=== PATIENT | female | born 1995 | race Caucasian/White ===

== ENCOUNTER 2020-08-30 08:10 | Inpatient (IN) | payer BC ==
[~2020-08-30 08:10] MED LIST: Lidocaine 1.5% with EPINEPHrine 1:200,000 5 ML Amp ONE
[2020-08-30] MEDS ORDERED: Ondansetron 4 MG/2 ML SDV IVPUSH PRN (08:38)
[2020-08-30] MEDS ORDERED: Nalbuphine 10 MG/1 ML Vial IVPUSH PRN (08:38)
[2020-08-30] MEDS ORDERED: Ampicillin 2 GM in Sodium Chloride 0.9% 100 ML IV ONE (08:38)
[2020-08-30] MEDS ORDERED: Sodium Chloride 0.9% 10 ML Syringe FLUSH PRN (08:38)
[2020-08-30] MEDS ORDERED: Oxytocin/Lactated Ringers 10 UNIT/1,000 ML BAG IV SCH ×2 (08:45→16:15)
[2020-08-30] MEDS: Lactated Ringers 1,000 ML IV SCH ×3 (09:30→14:56)
--- NOTE | 2020-08-30 10:09 | PCM.LDHP ---
L&D History of Present Illness - General Date of Service: 08/30/20 Admit Problem/Dx: Patient Status Order with Admit Dx/Problem 08/30/20 08:22 Patient Status [ADT] Routine 08/30/20 08:38 Patient Status [ADT] Routine Admission Diagnosis/Problem Admission Diagnosis/Problem Source of Information: Patient History Limitations: Reports: No Limitations - History of Present Illness Introduction:: Patient is a 24 y/o at 38 2/7 wks who presented this AM with SROM. Doing well. 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: : 1 Para: 0 LMP (Approximate): - Past Surgical History HEENT Surgical History: Reports: Oral Surgery (wisdom tooth extraction) Female Surgical History: Reports: Breast Reduction Musculoskeletal Surgical History: Reports: Other (See Below) (right foot procedure) Social & Family History - Tobacco Use Tobacco Use Status *Q: Never Tobacco User - Alcohol Use Alcohol Use History: No - Recreational Drug Use Recreational Drug Use: No H&P Review of Systems - Review of Systems: Review Of Systems: See Below General: Reports: No Symptoms Pulmonary: Reports: No Symptoms Cardiovascular: Reports: No Symptoms Gastrointestinal: Reports: No Symptoms Genitourinary: Reports: No Symptoms Musculoskeletal: Reports: No Symptoms Psychiatric: Reports: No Symptoms Neurological: Reports: No Symptoms L&D Exam - Exam Exam: See Below - OB Specific Contraction Intensity: Moderate Movement: Active Heart Tones: Present Heart Tones per Min: 140 Heart Rate (FHR) Variability: Moderate (6-25 bmp) Presentation: Vertex - Delvalle Score Delvalle Score Cervix Position: Anterior Delvalle Score Consistency: Soft Delvalle Score Effacement: >80% Delvalle Score Dilation: > 5 cm Delvalle Score 's Station: -1 ,0 Delvalle Score Total: 12 - Exam General: Alert, Oriented, Cooperative Lungs: Clear to Auscultation, Normal Respiratory Effort Cardiovascular: Regular Rate, Regular Rhythm GI/Abdominal Exam: Soft, Non-Tender Genitourinary: Normal external exam Extremities: Normal Inspection Skin: Warm, Dry, Intact - Patient Data Lab Results Last 24 hrs: Laboratory Results - last 24 hr 08/30/20 08/30/20 Range/Units 08:38 08:39 WBC 11.67 H (3.98-10.04) K/mm3 RBC 4.27 (3.98-5.22) M/mm3 Hgb 12.5 D (11.2-15.7) gm/dl Hct 37.9 (34.1-44.9) % MCV 88.8 (79.4-94.8) fl MCH 29.3 (25.6-32.2) pg MCHC 33.0 (32.2-35.5) g/dl RDW Std Deviation 47.2 H (36.4-46.3) fL Plt Count 208 (182-369) K/mm3 MPV 9.8 (9.4-12.3) fl SARS-CoV-2 RNA (FREDY) Negative (NEGATIVE) Result Diagrams: 08/30/20 08:38 - Problem List (1) 38 weeks gestation of SNOMED Code(s): 25420488 ICD Code: Z3A.38 - 38 WEEKS GESTATION OF Status: Acute Current Visit: Yes (2) GBS (group B Streptococcus carrier), +RV culture, currently SNOMED Code(s): 2866039146778, 282361007, 1166929147689 ICD Code: O99.820 - STREPTOCOCCUS B CARRIER STATE COMPLICATING Status: Acute Current Visit: Yes Problem List Initiated/Reviewed/Updated: Yes Orders Last 24hrs: Active Orders 24 hr Category Date Time Status Patient Status [ADT] Routine ADT 08/30/20 08:22 Active Patient Status [ADT] Routine ADT 08/30/20 08:38 Active Activity as Tolerated [RC] PFP Care 08/30/20 08:38 Active Communication Order [RC] ASDIRECTED Care 08/30/20 08:38 Active Heart Tones [RC] ASDIRECTED Care 08/30/20 08:38 Active Non Stress Test [RC] PER UNIT ROUTINE Care 08/30/20 08:22 Active Notify Provider [RC] PFP Care 08/30/20 08:38 Active Notify Provider [RC] PRN Care 08/30/20 08:38 Active Peripheral IV Care [RC] . DIRECTED Care 08/30/20 08:38 Active Vaginal Exam [RC] PRN Care 08/30/20 08:22 Active Vital Signs [RC] PER UNIT ROUTINE Care 08/30/20 08:22 Active Regular Diet [DIET] Diet 08/30/20 Breakfast Active Regular Diet [DIET] Diet 08/30/20 Breakfast Active AMNISURE RUPTURE MEMBRAN [BF] Stat Lab 08/30/20 08:22 Ordered PATIENT RETYPE [BBK] Routine Lab 08/30/20 09:53 Ordered RAPID PLASMA REAGIN,RPR [CHEM] Routine Lab 08/30/20 08:38 Ordered TYPE AND SCREEN [BBK] Stat Lab 08/30/20 09:00 Results Ampicillin 1 gm Med 08/30/20 12:45 Active Sodium Chloride 0.9% [Normal Saline] 100 ml IV Q4H Lactated Ringers [Ringers, Lactated] 1,000 ml Med 08/30/20 08:45 Active IV ASDIRECTED Nalbuphine [Nubain] Med 08/30/20 08:38 Active 10 mg IVPUSH Q2H PRN Ondansetron [Zofran] Med 08/30/20 08:38 Active 4 mg IVPUSH Q4H PRN Oxytocin/Lactated Ringers [Pitocin in LR 10 Units/1,000 Med 08/30/20 08:45 Active ML] 10 unit in 1,000 ml IV .CONTINUOUS Sodium Chloride 0.9% [Saline Flush] Med 08/30/20 08:38 Active 10 ml FLUSH ASDIRECTED PRN Electronic Heart Tones Ext w TOCO [WOMSER] Oth 08/30/20 08:38 Ordered Routine Electronic Heart Tones Internal [WOMSER] Per Unit Oth 08/30/20 08:38 Ordered Routine Peripheral IV Insertion Adult [OM.PC] Routine Oth 08/30/20 08:38 Ordered Resuscitation Status Routine Resus Stat 08/30/20 08:22 Ordered Medication Orders Lactated Ringer's (Ringers, Lactated) 1,000 mls @ 100 mls/hr IV ASDIRECTED ARIANA Last Admin: 08/30/20 09:30 Dose: 100 mls/hr Documented by: MARIKA Ampicillin Sodium 1 gm/ Sodium (Chloride) 100 mls @ 200 mls/hr IV Q4H ARIANA Oxytocin/Lactated Ringer's (Pitocin In Lr 10 Units/1,000 Ml) 10 unit in 1,000 mls @ 500 mls/hr IV .CONTINUOUS ARIANA Nalbuphine HCl (Nalbuphine 10 Mg/1 Ml Vial) 10 mg IVPUSH Q2H PRN PRN Reason: Pain Ondansetron HCl (Ondansetron 4 Mg/2 Ml Sdv) 4 mg IVPUSH Q4H PRN PRN Reason: Nausea/Vomiting Sodium Chloride (Sodium Chloride 0.9% 10 Ml Syringe) 10 ml FLUSH ASDIRECTED PRN PRN Reason: Keep Vein Open Assessment/Plan Comment:: * Labs * GBS positive, Ampicillin to be started * Pain management per patient preference * Anticipate
[2020-08-30] MEDS: Ampicillin 1 GM in Sodium Chloride 0.9% 100 ML IV SCH ×3 (13:05→21:51)
[2020-08-30] MEDS ORDERED: fentaNYL 100 MCG/2 ML SDV EPIDUR PRN (13:07)
[2020-08-30] MEDS ORDERED: ePHEDrine 50 MG/ML SDV IVPUSH PRN (13:07)
[2020-08-30] MEDS ORDERED: diphenhydrAMINE 50 MG/ML SDV IVPUSH PRN (13:07)
[2020-08-30] MEDS ORDERED: fentaNYL 100 MCG/2 ML SDV ONE (13:18)
[2020-08-30] MEDS: Bupivacaine/fentaNYL/NS 100 ML Bag EPIDUR PRN ×2 (13:22→21:50)
--- NOTE | 2020-08-30 14:02 | PCM.SN.2 ---
- Free Text/Narrative Note: Requested to palce a peripheral IV catheter after 5 unsuccessful attempts by floor RNs. Left hand #20 placed , good blood return and flushed easily. Start 914 End 929
--- NOTE | 2020-08-30 14:03 | PCM.PREANE ---
Preanesthetic Assessment - Procedure Proposed Procedure: Continuous labor epidural - Anesthesia/Transfusion/Family Hx Anesthesia History: Prior Anesthesia Without Reaction Transfusion History: No Prior Transfusion(s) - Review of Systems General: No Symptoms Pulmonary: No Symptoms Cardiovascular: No Symptoms Gastrointestinal: No Symptoms Neurological: No Symptoms Other: Reports: None - Physical Assessment Vital Signs: Last Vital Signs Temp 98.6 F 08/30/20 08:30 Pulse 96 08/30/20 08:30 Resp 16 08/30/20 08:30 BP 136/82 08/30/20 08:30 Pulse Ox 99 08/30/20 08:30 Height: 1.6 m Weight: 98.475 kg ASA Class: 2 Mental Status: Alert & Oriented x3 Airway Class: Mallampati = 3 Dentition: Reports: Normal Dentition Thyro-Mental Finger Breadths: 3 Mouth Opening Finger Breadths: 3 ROM/Head Extension: Full Lungs: Clear to Auscultation, Normal Respiratory Effort Cardiovascular: Regular Rate, Regular Rhythm - Lab Values: Laboratory Last Values WBC 11.67 K/mm3 (3.98-10.04) H 08/30/20 08:38 RBC 4.27 M/mm3 (3.98-5.22) 08/30/20 08:38 Hgb 12.5 gm/dl (11.2-15.7) D 08/30/20 08:38 Hct 37.9 % (34.1-44.9) 08/30/20 08:38 MCV 88.8 fl (79.4-94.8) 08/30/20 08:38 MCH 29.3 pg (25.6-32.2) 08/30/20 08:38 MCHC 33.0 g/dl (32.2-35.5) 08/30/20 08:38 RDW Std Deviation 47.2 fL (36.4-46.3) H 08/30/20 08:38 Plt Count 208 K/mm3 (182-369) 08/30/20 08:38 MPV 9.8 fl (9.4-12.3) 08/30/20 08:38 SARS-CoV-2 RNA (FREDY) Negative (NEGATIVE) 08/30/20 08:39 Blood Type A POSITIVE 08/30/20 09:00 Gel Antibody Screen Negative 08/30/20 09:00 - Allergies Allergies/Adverse Reactions: Allergies Allergy/AdvReac Type Severity Reaction Status Date / Time nitrofurantoin Allergy Rash Verified 08/30/20 08:26 [From Macrobid] sertraline [From Zoloft] Allergy Rash Verified 08/30/20 08:26 hydrocodone AdvReac Other Verified 08/30/20 08:26 - Acknowledgements Anesthesia Type Planned: Epidural Pt an Appropriate Candidate for the Planned Anesthesia: Yes Alternatives and Risks of Anesthesia Discussed w Pt/Guardian: Yes Pt/Guardian Understands and Agrees with Anesthesia Plan: Yes PreAnesthesia Questionnaire Gastrointestinal History: Reports: GERD 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: Endocrine/Metabolic History: Reports: Obesity/BMI 30+ - Past Surgical History HEENT Surgical History: Reports: Oral Surgery (wisdom tooth extraction) Female Surgical History: Reports: Breast Reduction Musculoskeletal Surgical History: Reports: Other (See Below) (right foot procedure) - SUBSTANCE USE Tobacco Use Status *Q: Never Tobacco User Tobacco Use Within Last Twelve Months: No Second Hand Smoke Exposure: No Recreational Drug Use History: No - CURRENT (IN HOUSE) MEDS Current Meds: Current Medications Diphenhydramine HCl (Diphenhydramine 50 Mg/Ml Sdv) 25 mg IVPUSH Q6H PRN PRN Reason: pruritis Ephedrine Sulfate (Ephedrine 50 Mg/Ml Sdv) 5 mg IVPUSH ASDIRECTED PRN PRN Reason: Hypotension Fentanyl (Fentanyl 100 Mcg/2 Ml Sdv) 100 mcg EPIDUR Q3H PRN PRN Reason: Pain Last Admin: 08/30/20 13:22 Dose: 100 mcg Documented by: Fentanyl/Bupivacaine HCl (Bupivacaine/Fentanyl/Ns 100 Ml Bag) 100 ml EPIDUR ASDIRECTED PRN PRN Reason: Pain Last Admin: 08/30/20 13:22 Dose: 100 ml Documented by: Lactated Ringer's (Ringers, Lactated) 1,000 mls @ 100 mls/hr IV ASDIRECTED ARIANA Last Admin: 08/30/20 13:43 Dose: 999 mls/hr Documented by: Ampicillin Sodium 1 gm/ Sodium (Chloride) 100 mls @ 200 mls/hr IV Q4H [facility] Last Admin: 08/30/20 13:05 Dose: 200 mls/hr Documented by: Oxytocin/Lactated Ringer's (Pitocin In Lr 10 Units/1,000 Ml) 10 unit in 1,000 mls @ 500 mls/hr IV .CONTINUOUS ARIANA Nalbuphine HCl (Nalbuphine 10 Mg/1 Ml Vial) 10 mg IVPUSH Q2H PRN PRN Reason: Pain Last Admin: 08/30/20 12:29 Dose: 10 mg Documented by: Ondansetron HCl (Ondansetron 4 Mg/2 Ml Sdv) 4 mg IVPUSH Q4H PRN PRN Reason: Nausea/Vomiting Sodium Chloride (Sodium Chloride 0.9% 10 Ml Syringe) 10 ml FLUSH ASDIRECTED PRN PRN Reason: Keep Vein Open Discontinued Medications Fentanyl (Fentanyl 100 Mcg/2 Ml Sdv) Confirm Administered Dose 100 mcg .ROUTE .STK-MED ONE Stop: 08/30/20 13:19 Last Admin: 08/30/20 13:57 Dose: Not Given Documented by: Ampicillin Sodium 2 gm/ Sodium (Chloride) 100 mls @ 200 mls/hr IV ONETIME ONE Stop: 08/30/20 09:07 Last Admin: 08/30/20 09:30 Dose: 200 mls/hr Documented by:
--- NOTE | 2020-08-30 16:49 | PCM.PNLD ---
Labor Progress Note - VS & Meds Vital Signs: Last Vital Signs Temp 37.0 C 08/30/20 08:30 Pulse 96 08/30/20 08:30 Resp 16 08/30/20 08:30 BP 136/82 08/30/20 08:30 Pulse Ox 99 08/30/20 08:30 Active Medications: Current Medications Diphenhydramine HCl (Diphenhydramine 50 Mg/Ml Sdv) 25 mg IVPUSH Q6H PRN PRN Reason: pruritis Ephedrine Sulfate (Ephedrine 50 Mg/Ml Sdv) 5 mg IVPUSH ASDIRECTED PRN PRN Reason: Hypotension Last Admin: 08/30/20 14:12 Dose: 5 mg Documented by: Fentanyl (Fentanyl 100 Mcg/2 Ml Sdv) 100 mcg EPIDUR Q3H PRN PRN Reason: Pain Last Admin: 08/30/20 13:22 Dose: 100 mcg Documented by: Fentanyl/Bupivacaine HCl (Bupivacaine/Fentanyl/Ns 100 Ml Bag) 100 ml EPIDUR ASDIRECTED PRN PRN Reason: Pain Last Admin: 08/30/20 13:22 Dose: 100 ml Documented by: Lactated Ringer's (Ringers, Lactated) 1,000 mls @ 100 mls/hr IV ASDIRECTED ARIANA Last Admin: 08/30/20 14:56 Dose: 100 mls/hr Documented by: Ampicillin Sodium 1 gm/ Sodium (Chloride) 100 mls @ 200 mls/hr IV Q4H ARIANA Last Admin: 08/30/20 13:05 Dose: 200 mls/hr Documented by: Oxytocin/Lactated Ringer's (Pitocin In Lr 10 Units/1,000 Ml) 10 unit in 1,000 mls @ 500 mls/hr IV .CONTINUOUS ARIANA Oxytocin/Lactated Ringer's (Pitocin In Lr 10 Units/1,000 Ml) 10 unit in 1,000 mls @ 12 mls/hr IV TITRATE ARIANA; Protocol Last Titration: 08/30/20 16:45 Dose: 4 munits/min, 24 mls/hr Documented by: Nalbuphine HCl (Nalbuphine 10 Mg/1 Ml Vial) 10 mg IVPUSH Q2H PRN PRN Reason: Pain Last Admin: 08/30/20 12:29 Dose: 10 mg Documented by: Ondansetron HCl (Ondansetron 4 Mg/2 Ml Sdv) 4 mg IVPUSH Q4H PRN PRN Reason: Nausea/Vomiting Sodium Chloride (Sodium Chloride 0.9% 10 Ml Syringe) 10 ml FLUSH ASDIRECTED PRN PRN Reason: Keep Vein Open Discontinued Medications Fentanyl (Fentanyl 100 Mcg/2 Ml Sdv) Confirm Administered Dose 100 mcg .ROUTE .STK-MED ONE Stop: 08/30/20 13:19 Last Admin: 08/30/20 13:57 Dose: Not Given Documented by: Ampicillin Sodium 2 gm/ Sodium (Chloride) 100 mls @ 200 mls/hr IV ONETIME ONE Stop: 08/30/20 09:07 Last Admin: 08/30/20 09:30 Dose: 200 mls/hr Documented by: - Uterine Contractions Uterine Monitoring Mode: External Angelica Contraction Intensity: Moderate Uterine Resting Tone: Soft - Monitoring Monitor Mode: External Ultrasound Heart Rate (FHR) Baseline: 135 Heart Rate (FHR) Variability: Moderate (6-25 bmp) Accelerations: Present, 15x15 Decelerations: None Strip Review: Category I - Vaginal Exam Dilation (cm): 9-10 Effacement (Percent): 100 Station: 1 - Labor Progress (Free Text) Labor Progress: Doing well. Had be 8 cm over several checks and so pitocin started. Now making change. Comfortable with epidural
--- NOTE | 2020-08-30 22:36 | PCM.DEL ---
L & D Note - General Info Date of Service: 08/30/20 - Delivery Note Labor: Augmented by Oxytocin Delivery Outcome: Livebirth Delivery Method: Spontaneous Vaginal Delivery-Single Infant Delivery Mode: Vacuum Extraction Presentation: Left Occiput Anterior (LUIS ENRIQUE) Nuchal Cord: Present, Reduced Anesthesia Type: Epidural Amniotic Fluid Description: Clear Episiotomy Type: None Laceration: 2nd Degree Suture type: Vicryl Suture size: 2-0 Placenta: Intact, Spontaneous Cord: 3 Vessels Estimated Blood Loss: 200 Resuscitation Needed: Yes [place]: Suctioned, Bulb Syringe, Cathether, Stimulated, Warmed, [place] Used, Warmer Used Score 1 min: 4 Score 5 min: 7 Score 10 min: 8 Delivery Comments (Free Text/Narrative):: The patient was pushing in the dorsal lithotomy position. After about 3 hours of pushing patient became fatigued and discussion was held about assisted vaginal delivery. She did desire to proceed. scalp noted at introitus and visible even without pushing. head in LUIS ENRIQUE presentation. Maternal pushing effort was good and the pelvis was felt to be adequate for an instrument assisted delivery. Given maternal fatigue the decision was made to proceed with vacuum assisted vaginal delivery. The mushroom cup was placed without difficulty at 2123. Assistance done with next 2 contractions and then pop off occurred. Vacuum reapplied at 2128 and over next 2 contractions assistance given with pop of at 2132. Total pressure applied 550 mm Hg. Large, 6 cm diameter, amount of scalp then past opening of introitus. Patient encouraged to continuing pushing on her own. head then delivered from LUIS ENRIQUE presentation. Nuchal cord present and reduced. With gentle downward traction the shoulders and body delivered. Delivery time 2203. placed on maternal abdomen. Cord clamped and cut. Infant taken to warmer for assessment. Cord segment obtained for cord gas. Cord blood obtained. Placenta then allowed time to separate and expelled intact. Inspection of the perineum following delivery with 2nd degree repaired with a 2-0 in the typical fashion. Vacuum Extractor Progress Note - Alternative Labor Strategies Considered Alternative Labor Strategies Considered:: Reports: Yes Strategies Considered:: Reports: Contraction Intensity Adequate Indications Considered:: Reports: Yes Indications:: Reports: Shortening of 2nd Stage for Maternal Benefit Time Out:: Reports: Yes - Patient Prepared Patient Prepared:: Reports: Yes Informed Consent:: Reports: Verbal Risks: Reports: Yes Risks Include:: Reports: Laceration, Shoulder Dystocia, Maternal Injury Anesthesia/Analgesia Adequate:: Reports: Yes - Probability of Success High Probability of Success:: Reports: Yes Weight Estimated:: Reports: AGA Patient Diabetic:: Reports: No Pelvis Adequate:: Reports: Yes Position:: LUIS ENRIQUE Asynclitic:: Reports: No Station:: - Application Time Maximum Application Time & Number of Pop-Offs Predetermined:: Reports: Yes Maximum Pressure Maintained in Green [place] (cm Hg):: 550 Total Application Time (min): *max=20min: 8 Number of Times Cup Disengaged:: 2 Type of Vacuum Used:: Reports: Cup: Mushroom type Comments:: head brought closer to delivery, but patient ultimately able to achieve delivery on her own - Exit Strategy Exit strategy available:: Reports: Yes and resuscitation teams readily available:: Reports: Yes - General Info Date of Service: 08/30/20 - Patient Data Weight - Most Recent: 98.475 kg - Problem List & Annotations (1) 38 weeks gestation of SNOMED Code(s): 39948495 Code(s): Z3A.38 - 38 WEEKS GESTATION OF Status: Acute Current Visit: Yes (2) GBS (group B Streptococcus carrier), +RV culture, currently SNOMED Code(s): 0422246910260, 595729138, [id number] Code(s): O99.820 - STREPTOCOCCUS B CARRIER STATE COMPLICATING Status: Acute Current Visit: Yes (3) Vacuum extraction, delivered, current hospitalization SNOMED Code(s): 225616027 Code(s): O66.5 - ATTEMPTED APPLICATION OF VACUUM EXTRACTOR AND FORCEPS Status: Acute Current Visit: Yes - Problem List Review Problem List Initiated/Reviewed/Updated: Yes - My Orders Last 24 Hours: My Active Orders 08/30/20 Breakfast Regular Diet [DIET] Regular Diet [DIET] 08/30/20 08:22 Patient Status [ADT] Routine Resuscitation Status Routine 08/30/20 08:38 Patient Status [ADT] Routine Activity as Tolerated [RC] PFP Communication Order [RC] ASDIRECTED Notify Provider [RC] PFP Notify Provider [RC] PRN Peripheral IV Care [RC] . DIRECTED Nalbuphine [Nubain] 10 mg IVPUSH Q2H PRN Ondansetron [Zofran] 4 mg IVPUSH Q4H PRN Sodium Chloride 0.9% [Saline Flush] 10 ml FLUSH ASDIRECTED PRN Electronic Heart Tones Ext w TOCO [WOMSER] Routine Electronic Heart Tones Internal [WOMSER] Per Unit Routine Peripheral IV Insertion Adult [OM.PC] Routine 08/30/20 08:45 Lactated Ringers [Ringers, Lactated] 1,000 ml IV ASDIRECTED Oxytocin/Lactated Ringers [Pitocin in LR 10 Units/1,000 ML] 10 unit in 1,000 ml IV .CONTINUOUS 08/30/20 12:45 Ampicillin 1 gm Sodium Chloride 0.9% [Normal Saline] 100 ml IV Q4H 08/30/20 16:15 Oxytocin/Lactated Ringers [Pitocin in LR 10 Units/1,000 ML] 10 unit in 1,000 ml IV TITRATE - Assessment Assessment:: PPD#0 - Plan Plan:: * Routine cares * Breast feeding * Discharge home in 2 days
[2020-08-30] MEDS ORDERED: Docusate Sodium 100 MG Cap PO PRN (23:32)
[2020-08-30] MEDS ORDERED: Benzocaine/Menthol 20%-0.5% Spray 56 GM Canister TOP PRN (23:32)
[2020-08-30] MEDS ORDERED: Acetaminophen 325 MG Tab PO PRN (23:32)
[2020-08-31] MEDS: Witch Hazel Medicated Pads 40/Jar TOP PRN (00:08)
[2020-08-31] MEDS: Ibuprofen 600 MG Tab PO PRN ×4 (00:08→21:24)
[2020-08-31] MEDS ORDERED: Polyethylene Glycol 3350 Powder 17 GM Packet PO PRN (08:14)
--- NOTE | 2020-08-31 08:14 | PCM.PNPP ---
- General Info Date of Service: 08/31/20 Functional Status: Reports: Pain Controlled, Tolerating Diet, Ambulating, Urinating - Review of Systems General: Reports: No Symptoms Pulmonary: Reports: No Symptoms Cardiovascular: Reports: No Symptoms Gastrointestinal: Reports: No Symptoms Genitourinary: Reports: Other (some perineal pain) Musculoskeletal: Reports: No Symptoms - Patient Data Vital Signs - Most Recent: Last Vital Signs Temp 36.4 C 08/31/20 04:06 Pulse 89 08/31/20 04:06 Resp 18 08/31/20 04:06 BP 121/58 L 08/31/20 04:06 Pulse Ox 97 08/31/20 04:06 Weight - Most Recent: 98.475 kg I&O - Last 24 Hours: Intake & Output 08/30/20 08/31/20 08/31/20 22:59 06:59 14:59 Intake Total 2300 2000 Output Total 1300 332 Balance 1000 1668 Lab Results - Last 24 Hours: Laboratory Results - last 24 hr 08/30/20 08/30/20 08/30/20 Range/Units 08:38 08:39 09:00 WBC 11.67 H (3.98-10.04) K/mm3 RBC 4.27 (3.98-5.22) M/mm3 Hgb 12.5 D (11.2-15.7) gm/dl Hct 37.9 (34.1-44.9) % MCV 88.8 (79.4-94.8) fl MCH 29.3 (25.6-32.2) pg MCHC 33.0 (32.2-35.5) g/dl RDW Std Deviation 47.2 H (36.4-46.3) fL Plt Count 208 (182-369) K/mm3 MPV 9.8 (9.4-12.3) fl RPR Non-reactive (NONREACTIVE) SARS-CoV-2 RNA (FREDY) Negative (NEGATIVE) Blood Type Gel Antibody Screen 08/30/20 Range/Units 09:00 WBC (3.98-10.04) K/mm3 RBC (3.98-5.22) M/mm3 Hgb (11.2-15.7) gm/dl Hct (34.1-44.9) % MCV (79.4-94.8) fl MCH (25.6-32.2) pg MCHC (32.2-35.5) g/dl RDW Std Deviation (36.4-46.3) fL Plt Count (182-369) K/mm3 MPV (9.4-12.3) fl RPR (NONREACTIVE) SARS-CoV-2 RNA (FREDY) (NEGATIVE) Blood Type A POSITIVE Gel Antibody Screen Negative Med Orders - Current: Current Medications Acetaminophen (Acetaminophen 325 Mg Tab) 650 mg PO Q4H PRN PRN Reason: mild pain or fever Benzocaine/Menthol (Benzocaine/Menthol 20%-0.5% [place] 56 Gm Canister) 0 gm TOP ASDIRECTED PRN PRN Reason: Perineal Comfort Measure Last Admin: 08/31/20 00:06 Dose: 1 canister Documented by: Docusate Sodium (Docusate Sodium 100 Mg Cap) 100 mg PO BID PRN PRN Reason: Constipation Ibuprofen (Ibuprofen 600 Mg Tab) 600 mg PO Q6H PRN PRN Reason: Mild pain or fever Last Admin: 08/31/20 06:33 Dose: 600 mg Documented by: Keren Nice (Keren Nice Medicated Pads 40/Jar) 1 pad TOP ASDIRECTED PRN PRN Reason: Perineal Comfort Measure Last Admin: 08/31/20 00:08 Dose: 1 tub Documented by: Discontinued Medications Diphenhydramine HCl (Diphenhydramine 50 Mg/Ml Sdv) 25 mg IVPUSH Q6H PRN PRN Reason: pruritis Ephedrine Sulfate (Ephedrine 50 Mg/Ml Sdv) 5 mg IVPUSH ASDIRECTED PRN PRN Reason: Hypotension Last Admin: 08/30/20 14:12 Dose: 5 mg Documented by: Fentanyl (Fentanyl 100 Mcg/2 Ml Sdv) 100 mcg EPIDUR Q3H PRN PRN Reason: Pain Last Admin: 08/30/20 13:22 Dose: 100 mcg Documented by: Fentanyl (Fentanyl 100 Mcg/2 Ml Sdv) Confirm Administered Dose 100 mcg .ROUTE .STK-MED ONE Stop: 08/30/20 13:19 Last Admin: 08/30/20 13:57 Dose: Not Given Documented by: Fentanyl/Bupivacaine HCl (Bupivacaine/Fentanyl/Ns 100 Ml Bag) 100 ml EPIDUR ASDIRECTED PRN PRN Reason: Pain Last Admin: 08/30/20 21:50 Dose: 100 ml Documented by: Lactated Ringer's (Ringers, Lactated) 1,000 mls @ 100 mls/hr IV ASDIRECTED ARIANA Last Admin: 08/30/20 14:56 Dose: 100 mls/hr Documented by: Ampicillin Sodium 2 gm/ Sodium (Chloride) 100 mls @ 200 mls/hr IV ONETIME ONE Stop: 08/30/20 09:07 Last Admin: 08/30/20 09:30 Dose: 200 mls/hr Documented by: Ampicillin Sodium 1 gm/ Sodium (Chloride) 100 mls @ 200 mls/hr IV Q4H ARIANA Last Admin: 08/30/20 21:51 Dose: 200 mls/hr Documented by: Oxytocin/Lactated Ringer's (Pitocin In Lr 10 Units/1,000 Ml) 10 unit in 1,000 mls @ 500 mls/hr IV .CONTINUOUS ARIANA Oxytocin/Lactated Ringer's (Pitocin In Lr 10 Units/1,000 Ml) 10 unit in 1,000 mls @ 12 mls/hr IV TITRATE ARIANA; Protocol Last Titration: 08/30/20 18:02 Dose: 8 munits/min, 48 mls/hr Documented by: Nalbuphine HCl (Nalbuphine 10 Mg/1 Ml Vial) 10 mg IVPUSH Q2H PRN PRN Reason: Pain Last Admin: 08/30/20 12:29 Dose: 10 mg Documented by: Ondansetron HCl (Ondansetron 4 Mg/2 Ml Sdv) 4 mg IVPUSH Q4H PRN PRN Reason: Nausea/Vomiting Sodium Chloride (Sodium Chloride 0.9% 10 Ml Syringe) 10 ml FLUSH ASDIRECTED PRN PRN Reason: Keep Vein Open - Infant Interaction Disposition, : [place] to Nursery Feeding: Breastfed ; Nursed Well Support Person: - Recovery Exam Fundal Tone: Firm Fundal Level: At Umbilicus Fundal Placement: Midline Lochia Amount: Small Lochia Color: Rubra/Red Perineum Description: Other (see below) Other Perinuem Description: 2nd degree with repair Episiotomy/Laceration: Approximated Bladder Status: Voiding - Exam General: Alert, Oriented, Cooperative GI/Abdominal Exam: Soft, Non-Tender - Problem List & Annotations (1) 38 weeks gestation of SNOMED Code(s): 63759998 Code(s): Z3A.38 - 38 WEEKS GESTATION OF Status: Acute Current Visit: Yes (2) GBS (group B Streptococcus carrier), +RV culture, currently SNOMED Code(s): 3039004300447, 277218989, 6627591415478 Code(s): O99.820 - STREPTOCOCCUS B CARRIER STATE COMPLICATING Status: Acute Current Visit: Yes (3) Vacuum extraction, delivered, current hospitalization SNOMED Code(s): 018027887 Code(s): O66.5 - ATTEMPTED APPLICATION OF VACUUM EXTRACTOR AND FORCEPS Status: Acute Current Visit: Yes - Problem List Review Problem List Initiated/Reviewed/Updated: Yes - My Orders Last 24 Hours: My Active Orders 08/30/20 08:22 Resuscitation Status Routine 08/30/20 23:32 Acetaminophen [TylenoL] 650 mg PO Q4H PRN Benzocaine/Menthol [Dermoplast Pain Relief [place]] See Dose Instructions TOP ASDIRECTED PRN Docusate Sodium [Colace] 100 mg PO BID PRN Ibuprofen [Motrin] 600 mg PO Q6H PRN witch Walter [Tucks] 1 pad TOP ASDIRECTED PRN Heat Therapy [OM.PC] PRN 08/30/20 23:32 Activity as Tolerated [RC] PER UNIT ROUTINE Vital Signs [RC] 03,,, Assess Lochia [WOMSER] Per Unit Routine Assess Uterine Involution [WOMSER] Per Unit Routine Breast Pump [WOMSER] Per Unit Routine Ice Therapy [OM.PC] Per Unit Routine Perineal Care [OM.PC] Per Unit Routine Peripheral IV Discontinue [OM.PC] Routine Sitz Bath [OM.PC] Per Unit Routine 08/31/20 23:32 Heat Therapy [OM.PC] PRN - Assessment Assessment:: PPD#1 - Plan Plan:: * Routine cares * Breast feeding * Discharge home tomorrow
--- NOTE | 2020-08-31 08:41 | PCM48HPAN ---
Post Anesthesia Note - EVALUATION WITHIN 48HRS OF ANESTHETIC Vital Signs in Normal Range: Yes Patient Participated in Evaluation: Yes Respiratory Function Stable: Yes Airway Patent: Yes Cardiovascular Function Stable: Yes Hydration Status Stable: Yes Pain Control Satisfactory: Yes Nausea and Vomiting Control Satisfactory: Yes Mental Status Recovered: Yes Vital Signs: Last Vital Signs Temp 97.5 F 08/31/20 04:06 Pulse 89 08/31/20 04:06 Resp 18 08/31/20 04:06 BP 121/58 L 08/31/20 04:06 Pulse Ox 97 08/31/20 04:06 - COMMENTS/OBSERVATIONS Free Text/Narrative:: Patient is on her day 1. Denies any backache or headache. No apparent anesthesia complications noted. Ambulating, no difficulty urinating.
[2020-08-31] MEDS: Docusate Sodium 100 MG Cap PO SCH ×2 (08:55→21:25)
[2020-09-01] MEDS: Ibuprofen 600 MG Tab PO PRN ×2 (04:34→12:16)
--- NOTE | 2020-09-01 05:51 | PCM.DCSUM1 ---
Discharge Summary - Discharge Data Discharge Date: 09/01/20 Discharge Disposition: Home, Self-Care 01 Condition: Good - Referral to Home Health Primary Care Physician: Josephine Starkey MD - Discharge Diagnosis/Problem(s) (1) 38 weeks gestation of SNOMED Code(s): 73225112 ICD Code: Z3A.38 - 38 WEEKS GESTATION OF Status: Acute Current Visit: Yes (2) GBS (group B Streptococcus carrier), +RV culture, currently SNOMED Code(s): 7494694881436, 671302366, 4971463376247 ICD Code: O99.820 - STREPTOCOCCUS B CARRIER STATE COMPLICATING Status: Acute Current Visit: Yes (3) Vacuum extraction, delivered, current hospitalization SNOMED Code(s): 218370930 ICD Code: O66.5 - ATTEMPTED APPLICATION OF VACUUM EXTRACTOR AND FORCEPS Status: Acute Current Visit: Yes - Patient Summary/Data Complications: None Consults: None Recommended Follow-up Testing/Procedures: Follow up in 3 weeks for check Hospital Course: 24 y/o at 38 2/7 wks presented with SROM/labor. Did stay at 8 cm for a time and so augmented with pitocin. After reached complete dilation did push about 3 hours before becoming exhausted and requested Vacuum assistance. This was done and able to bring baby closer to delivery, but after 2 pop off patient encouraged to continue pushing and able to achieve spontaneous delivery. she did well and was discharged home on PPD#2 - Patient Instructions Diet: Regular Diet as Tolerated Activity: As Tolerated Driving: May Drive Today Showering/Bathing: May Shower Showering/Bathing, Other: May bathe Notify Provider of: Fever, Increased Pain, Swelling and Redness, Drainage, Nausea and/or Vomiting - Discharge Plan *PRESCRIPTION DRUG MONITORING PROGRAM REVIEWED*: No *COPY OF PRESCRIPTION DRUG MONITORING REPORT IN PATIENT MEHNAZ: No Home Medications: Home Meds No122/Iron/Folic Acid [ Multi Tablet] 1 each PO DAILY 08/30/20 [History] Acetaminophen [Tylenol] 650 mg PO Q4H PRN tablet 09/01/20 [Rx] Docusate Sodium [Colace] 100 mg PO BID cap 09/01/20 [Rx] Ibuprofen [Motrin] 600 mg PO Q6H PRN tablet 09/01/20 [Rx] Referrals: Josephine Starkey MD [Primary Care Provider] - (3 weels for check ) - Discharge Summary/Plan Comment DC Time >30 min.: No - Patient Data Vitals - Most Recent: Last Vital Signs Temp 36.4 C 08/31/20 21:28 Pulse 88 09/01/20 02:16 Resp 15 09/01/20 02:16 BP 103/57 L 09/01/20 02:16 Pulse Ox 97 09/01/20 02:16 Weight - Most Recent: 98.475 kg I&O - Last 24 hours: Intake & Output 08/31/20 08/31/20 09/01/20 14:59 22:59 06:59 Intake Total 120 Balance 120 Med Orders - Current: Current Medications Acetaminophen (Acetaminophen 325 Mg Tab) 650 mg PO Q4H PRN PRN Reason: mild pain or fever Benzocaine/Menthol (Benzocaine/Menthol 20%-0.5% [place] 56 Gm Canister) 0 gm TOP ASDIRECTED PRN PRN Reason: Perineal Comfort Measure Last Admin: 08/31/20 00:06 Dose: 1 canister Documented by: Docusate Sodium (Docusate Sodium 100 Mg Cap) 100 mg PO BID ARIANA Last Admin: 08/31/20 21:25 Dose: 100 mg Documented by: Ibuprofen (Ibuprofen 600 Mg Tab) 600 mg PO Q6H PRN PRN Reason: Mild pain or fever Last Admin: 09/01/20 04:34 Dose: 600 mg Documented by: Polyethylene Glycol (Polyethylene Glycol 3350 Powder 17 Gm Packet) 17 gm PO BEDTIME PRN PRN Reason: Constipation Witch Arlet (Witch [place] Medicated Pads 40/Jar) 1 pad TOP ASDIRECTED PRN PRN Reason: Perineal Comfort Measure Last Admin: 08/31/20 00:08 Dose: 1 tub Documented by: Discontinued Medications Diphenhydramine HCl (Diphenhydramine 50 Mg/Ml Sdv) 25 mg IVPUSH Q6H PRN PRN Reason: pruritis Docusate Sodium (Docusate Sodium 100 Mg Cap) 100 mg PO BID PRN PRN Reason: Constipation Ephedrine Sulfate (Ephedrine 50 Mg/Ml Sdv) 5 mg IVPUSH ASDIRECTED PRN PRN Reason: Hypotension Last Admin: 08/30/20 14:12 Dose: 5 mg Documented by: Fentanyl (Fentanyl 100 Mcg/2 Ml Sdv) 100 mcg EPIDUR Q3H PRN PRN Reason: Pain Last Admin: 08/30/20 13:22 Dose: 100 mcg Documented by: Fentanyl (Fentanyl 100 Mcg/2 Ml Sdv) Confirm Administered Dose 100 mcg .ROUTE .STK-MED ONE Stop: 08/30/20 13:19 Last Admin: 08/30/20 13:57 Dose: Not Given Documented by: Fentanyl/Bupivacaine HCl (Bupivacaine/Fentanyl/Ns 100 Ml Bag) 100 ml EPIDUR ASDIRECTED PRN PRN Reason: Pain Last Admin: 08/30/20 21:50 Dose: 100 ml Documented by: Lactated Ringer's (Ringers, Lactated) 1,000 mls @ 100 mls/hr IV ASDIRECTED ARIANA Last Admin: 08/30/20 14:56 Dose: 100 mls/hr Documented by: Ampicillin Sodium 2 gm/ Sodium (Chloride) 100 mls @ 200 mls/hr IV ONETIME ONE Stop: 08/30/20 09:07 Last Admin: 08/30/20 09:30 Dose: 200 mls/hr Documented by: Ampicillin Sodium 1 gm/ Sodium (Chloride) 100 mls @ 200 mls/hr IV Q4H ARIANA Last Admin: 08/30/20 21:51 Dose: 200 mls/hr Documented by: Oxytocin/Lactated Ringer's (Pitocin In Lr 10 Units/1,000 Ml) 10 unit in 1,000 mls @ 500 mls/hr IV .CONTINUOUS ARIANA Oxytocin/Lactated Ringer's (Pitocin In Lr 10 Units/1,000 Ml) 10 unit in 1,000 mls @ 12 mls/hr IV TITRATE ARIANA; Protocol Last Titration: 08/30/20 18:02 Dose: 8 munits/min, 48 mls/hr Documented by: Nalbuphine HCl (Nalbuphine 10 Mg/1 Ml Vial) 10 mg IVPUSH Q2H PRN PRN Reason: Pain Last Admin: 08/30/20 12:29 Dose: 10 mg Documented by: Ondansetron HCl (Ondansetron 4 Mg/2 Ml Sdv) 4 mg IVPUSH Q4H PRN PRN Reason: Nausea/Vomiting Sodium Chloride (Sodium Chloride 0.9% 10 Ml Syringe) 10 ml FLUSH ASDIRECTED PRN PRN Reason: Keep Vein Open
[2020-09-01] MEDS: Witch Hazel Medicated Pads 40/Jar TOP PRN (12:16)
[2020-09-01] MEDS: Docusate Sodium 100 MG Cap PO SCH (16:03)
== END 2020-09-01 15:00 | disposition home or self-care (01) | DRG 560 ==
LOC: JD.OBCHECK 08:10 → JD.OB 08:38 → OBSVTOIN 22:04 → JD.OB 22:04
PROVIDERS: ADMIT Obstetrics & Gynecology; ATTEND Obstetrics & Gynecology
PROC: 10D07Z6 Extraction of Products of Conception, Vacuum, Via Natural or Artificial Opening (ICD-10-PCS; principal; 2020-08-30)
PROC: 0KQM0ZZ Repair Perineum Muscle, Open Approach (ICD-10-PCS; 2020-08-30)
PROC: 3E0R3BZ Introduction of Anesthetic Agent into Spinal Canal, Percutaneous Approach (ICD-10-PCS; 2020-08-30)
PROC: 00HU33Z Insertion of Infusion Device into Spinal Canal, Percutaneous Approach (ICD-10-PCS; 2020-08-30)
DX: O99.824 Streptococcus B carrier state complicating childbirth (principal); Z37.0 Single live birth; O70.1 Second degree perineal laceration during delivery; O69.81X0 Labor and delivery complicated by cord around neck, without compression, not applicable or unspecified; Z20.822 Contact with and (suspected) exposure to COVID-19; Z3A.38 38 weeks gestation of pregnancy; O66.5 Attempted application of vacuum extractor and forceps; Z88.8 Allergy status to other drugs, medicaments and biological substances; Z88.5 Allergy status to narcotic agent
CPT/HCPCS: 01967; 36410; 36415; 51702; 59025; 59409; 85027; 86592; 86850; 86900; 86901; A9270-GY; J0290; J2300; J2590; J3010; J7120; U0002

== ENCOUNTER 2024-08-11 05:58 | Inpatient (IN) | payer BC ==
[2024-08-11] MEDS: Lactated Ringers 1,000 ML ONE (06:37)
[2024-08-11] MEDS ORDERED: Sodium Chloride 0.9% 10 ML Syringe FLUSH PRN (06:48)
[2024-08-11] MEDS ORDERED: Ondansetron 4 MG/2 ML SDV IVPUSH PRN (06:48)
[2024-08-11] MEDS ORDERED: Nalbuphine 10 MG/1 ML Vial IVPUSH PRN (06:48)
[2024-08-11] MEDS ORDERED: Lidocaine 1% 50 ML MDV INJECT PRN (06:48)
[2024-08-11] MEDS: Oxytocin/0.9 % Sodium Chloride 30 UNIT/500 ML BAG IV SCH (06:55)
[2024-08-11] MEDS ORDERED: Lactated Ringers 1,000 ML IV SCH (07:00)
[2024-08-11 08:34] LABS: BASOPHILS PERCENT AUTO 0.2 % (0.0-1.0); EOSINOPHILS PERCENT AUTO 0.1 % (0.0-6.0); HEMATOCRIT 35.5 % (37.0-47.0); HEMOGLOBIN 11.7 gm/dl (12.0-16.0); IMMATURE GRAN ABSOLUTE AUTO 0.07 K/mm3 (0.00-0.05); IMMATURE GRAN PERCENT AUTO 0.4 % (0.0-0.4); LYMPHOCYTES ABSOLUTE AUTO 1.1 K/mm3 (1.0-4.8); LYMPHOCYTES PERCENT AUTO 6.5 % (24.0-44.0); MEAN CORPUSCULAR HEMOGLOBIN 28.5 pg (28.0-32.0); MEAN CORPUSCULAR VOLUME 86.6 fl (83.0-99.0); MEAN PLATELET VOLUME 10.3 fl (9.4-12.3); MONOCYTES ABSOLUTE AUTO 0.6 K/mm3 (0.0-0.8); MONOCYTES PERCENT AUTO 3.3 % (0.0-8.0); NEUTROPHILS ABSOLUTE AUTO 15.5 K/mm3 (1.8-7.7); NEUTROPHILS PERCENT AUTO 89.5 % (41.0-71.0); PLATELET COUNT,PLT 202 K/mm3 (150-400); WHITE BLOOD CELL COUNT,WBC 17.29 K/mm3 (3.9-11.3)
[2024-08-11] MEDS: Ampicillin 2 GM in Sodium Chloride 0.9% 100 ML IV ONE (09:35)
[2024-08-11] MEDS: Lidocaine 1% 50 ML MDV ONE (09:35)
[2024-08-11] MEDS ORDERED: Docusate Sodium 100 MG Cap PO PRN (09:38)
[2024-08-11] MEDS: Sodium Chloride 0.9% 10 ML Syringe FLUSH SCH (09:38)
[2024-08-11] MEDS ORDERED: Acetaminophen 325 MG Tab PO PRN (09:38)
[2024-08-11] MEDS: Witch Hazel Medicated Pads 40/Jar TOP PRN (11:00)
[2024-08-11] MEDS ORDERED: Ampicillin 1 GM in Sodium Chloride 0.9% 100 ML IV SCH (11:00)
[2024-08-11] MEDS: Benzocaine/Menthol 20%-0.5% Spray 78 GM Cannister TOP PRN (11:01)
[2024-08-11] MEDS: Ibuprofen 600 MG Tab PO SCH (16:23)
== END 2024-08-13 15:48 | disposition home or self-care (01) | DRG 560 ==
LOC: JD.OBCHECK 05:58 → JD.OB 06:04 → JD.OBCHECK 06:48 → OBSVTOIN 06:52 → JD.OB 06:53
PROVIDERS: ADMIT Obstetrics & Gynecology; ATTEND Obstetrics & Gynecology
PROC: 0HQ9XZZ Repair Perineum Skin, External Approach (ICD-10-PCS; principal; 2024-08-11)
PROC: 10E0XZZ Delivery of Products of Conception, External Approach (ICD-10-PCS; principal; 2024-08-11)
DX: O99.824 Streptococcus B carrier state complicating childbirth (principal); Z3A.39 39 weeks gestation of pregnancy; Z37.0 Single live birth; O70.0 First degree perineal laceration during delivery; Z88.8 Allergy status to other drugs, medicaments and biological substances; Z79.899 Other long term (current) drug therapy; Z98.890 Other specified postprocedural states
CPT/HCPCS: 36415; 59025; 59409; 85025; 86592; 86850; 86900; 86901; A9270-GY; J7120; J7999